=== PATIENT | male | born 1965 | race Hispanic/Latino ===

== ENCOUNTER 2016-11-15 00:35 | Observation (INO) | payer OTHER ==
[2016-11-15] VITALS (8 sets, daily range): BP systolic 124–152; BP diastolic 80–91; PULSE 59–78; RESP 14–20; O2SAT 96–98
[~2016-11-15] VITALS: Ht 165.1 cm; Wt 95.1 kg
--- NOTE | 2016-11-15 01:40 | ED.REPORT ---
HPI-Extremity Problem Upper Date of Service Nov 15, 2016 ED Provider: Marlo Frost MD Pt is a 51 year old male presenting to the ED complaining of redness and swelling to the base of his left thumb. The pt was bitten yesterday morning by his cat. Denies any fever, or any other symptoms at this time. He does not remember his last tetanus shot. Nursing Notes Stated Complaint: CAT BITE LEFT HAND Chief Complaint: Extremity Trauma Nursing Notes Reviewed: Yes Allergies: Coded Allergies: No Known Allergies (Verified Allergy, Unknown, 11/15/16) General Time Seen by MD: 01:39 Chief Complaint Hand Injury left Hx Obtained From: Patient Arrived By: Walk-in Onset Occurred: Yesterday Symptom Duration: Since onset Caused by: Animal bite (Cat) Location: : Hand left Quality: Painful Severity: Current: Mild Severity: Maximum: Moderate Associated with: Denies: Fever Immunizations: Unknown Recent Healthcare: No recent doctor visit, No recent hospitalization Similar Sx Previous: No Past Medical History Past Medical History healthy Past Surgical History denies Smoking History Unknown if Ever Smoker Ambulatory Status Independent Review of Systems Constitutional: Denies: Fever, Weakness - generalized Musculoskeletal: Reports: Extremity pain, Extremity swelling Complete sys rev & neg: except as marked. Respiratory: Denies: Shortness of breath Physical Exam Initial Vital Signs Vital Signs (First) Date Time Temp Pulse Resp B/P Pulse Ox O2 Delivery O2 Flow Rate FiO2 11/15/16 00:38 36.6 70 16 133/86 98 Room Air Initial VS: Reviewed General/Constitutional: Well-developed, Well-nourished Head / Eyes: Atraumatic, Normocephalic, PERRL ENT: Mucous membranes moist, Conjunctiva normal, No scleral icterus Respiratory: No respiratory distress Abdomen / GI: No distention Lower Extremities: Vascular intact, Neuro intact, No swelling, No tenderness Skin: Warm, Dry, No cyanosis Neurologic: Alert, Oriented, Nonfocal Psychiatric: Mood/affect normal, Behavior normal, Normal thought content Upper Extremity / MS: Full range of motion, No deformity, Neurologic intact, Vascular intact Puncture wounds base of left thumb on dorsum and radial aspect. Hand has some swelling in the first web space. Good active ROM. No streaking or axillary adenopathy. Interpretation & Diagnostics Lab Results Interpretation Result Diagram: 11/15/16 0202 11/15/16 0202 Test 11/15/16 02:02 White Blood Count 5.8th/mm3 (3.8-10.1) Red Blood Count 4.60mil/mm3 (4.40-5.80) Hemoglobin 14.2g/dL (13.8-17.2) Hematocrit 39.1% (41.0-50.0) Mean Corpuscular Volume 85.0fL (81-100) Mean Corpuscular Hemoglobin 30.9pg (27.0-35.0) Mean Corpuscular Hemoglobin Concent 36.3% (32.0-37.0) Red Cell Distribution Width 12.7% (12.3-15.4) Platelet Count 191bil/L (150-400) Neutrophils (%) (Auto) 52.3% (40-74) Lymphocytes (%) (Auto) 33.9% (14-46) Monocytes (%) (Auto) 10.7% (4-12) Eosinophils (%) (Auto) 2.8% (0-5) Basophils (%) (Auto) 0.3% (0-3) Sodium Level 142mEq/L (134-144) Potassium Level 3.9mEq/L (3.5-5.2) Chloride Level 104mEq/L (97-108) Carbon Dioxide Level 23mmol/L (18-29) Blood Urea Nitrogen 23mg/dL (6-24) Creatinine 0.76mg/dL (0.76-1.27) Estimat Glomerular Filtration Rate 115mL/min (>59) Glucose Level 107mg/dL (60-99) Calcium Level 9.1mg/dL (8.5-10.1) Total Bilirubin 0.6mg/dL (0.0-1.2) Aspartate Amino Transf (AST/SGOT) 26U/L (0-50) Alanine Aminotransferase (ALT/SGPT) 30U/L (0-44) Alkaline Phosphatase 55U/L (25-150) Total Protein 6.7g/dL (6.4-8.4) Albumin 4.1g/dL (3.4-5.0) Hold Shay Top Tube Received (Received) X-Ray Interpretation Xray Interpretation: Soft tissue swelling. No foreign body, no soft tissue gas, no fracture. X-Ray Ordered: Hand left Interpretation / Wet Read by: Wet read ED physician Re-Eval/Medical Decision Med Decision/Clinical Course 51-year-old male presenting with a 5 cellulitis to his left hand approximately 36 hours post bite. Tongue does not appear to have a foreign body or abscess and is not systemically ill at present. Blood cultures have been obtained, the extent of lymphangitic streaking with marked and he was started on IV Unasyn. We admitted to the hospitalist service, hopefully be all within two midnights. Re-Evaluation/Progress #1: Time of Eval: 01:48 Patient Status: Condition improved Re-Evaluation/Progress Note: Discussed plan for admission and IV antibiotics. Agrees with plan. Re-Evaluation/Progress #2: Time of Eval: 02:47 Patient Status: Condition improved Re-Evaluation/Progress Note: Marked the edges of the infection. Consultation : Referral / Consult Name: CatrinaMaryann Wahl Consulted With: Hospitalist Call Returned at: 03:15 Probation Agent: Will see patient, Agrees with plan, Accepts admit Counseled Regarding: Diagnosis, Lab results, Need for follow-up, When/why to return to ED Discharge & Departure Impression: Primary Impression: Cat bite involving extremity Additional Impression: Cellulitis of left hand Disposition: ADMITTED TO HOSPITAL Discharge Condition All VS Reviewed: Yes Condition: Improved Referrals: Ingrid Bullock MD (PCP) Suzanne Attestation Portions of this note were transcribed by Enedelia Seay. I, Dr. Frost personally performed the history, physical exam and medical decision-making; I reviewed and confirmed the accuracy of the information in the transcribed note. Signed by : Suzanne Curtis, 11/15/2016 at 0300. copies to: Ingrid Bullock MD, Donald L MD Nov 15, 2016 01:40 ENEDELIA SEAY Nov 15, 2016 01:47
[2016-11-15] MEDS ORDERED: TdaP Vaccine 0.5 mL Inj IM ONE (01:50)
[2016-11-15] MEDS ORDERED: Ondansetron 2 mg/mL 2 mL Inj IV PRN (01:50)
[2016-11-15] MEDS ORDERED: oxyCODONE-Acetamin 5-325 mg Tablet PO ONE (01:50)
[2016-11-15] MEDS ORDERED: Ampicillin-Sulbactam Inj 3,000 MG in 0.9% Sodium Chloride 100 ML IV ONE (01:50)
[2016-11-15 02:19] LABS: BASOPHILS % (AUTO) 0.3 % (0-3); EOSINOPHILS % (AUTO) 2.8 % (0-5); MONOCYTES % (AUTO) 10.7 % (4-12); Mean Corpuscular Hemoglobin 30.9 pg (27.0-35.0); NEUTROPHILS % (AUTO) 52.3 % (40-74); Platelet Count 191 bil/L (150-400)
--- NOTE | 2016-11-15 03:32 | NUR ---
Received report from Mary in ED.
[2016-11-15] MEDS ORDERED: Alum-Mag Hydrox-Simeth 30 mL Suspension PO PRN ×2 (03:40→04:20)
[2016-11-15] MEDS ORDERED: Ondansetron 2 mg/mL 2 mL Inj IVPUSH PRN ×2 (03:40→04:20)
--- NOTE | 2016-11-15 04:17 | NUR ---
ADMIT Pt arrived on floor at 0345 via wheelchair, transferred to bed by himself with steady gait. Pt in 4/10 pain, tolerable for now, no nausea reported. Admit complete. Med rec not complete--pt takes something for pain and inflammation in his back, unable to recall name, states he gets it from [place], takes it as little as possible. Pt denied any medical history. Awaiting orders.
[2016-11-15] MEDS ORDERED: Polyethylene Glycol (PEG) 17 Gm Powder PO PRN (04:20)
--- NOTE | 2016-11-15 05:47 | PCM.HPMED ---
Subjective Date of Service Nov 15, 2016 Primary Provider: Admitting Physician: Desmond Reid MD Primary Care Physician: Ingrid Bullock MD Attending Physician: Desmond Reid MD Admit Status: From the Emergency Department, Non-Telemetry Chief Complaint: "cat bite" History of Present Illness: Mr. Baljeet Cabello is a 51 year old man with history of low back pain who presented to the emergency department due to left thumb pain, redness, and swelling secondary to a cat bite that occurred on Wednesday morning, 11/13/2016. The redness and swelling has increased since the bite started. The pain has continued and occurs mainly when he moves his thumb. It goes up to a 6/10 with movement. The pain stays localized to the two puncture welsh from his cat's teeth. His cat goes outdoors and he does not think his cat has been vaccinated. He does not have fever, chills, palpitations, chest pain, nausea, or vomiting. He does not have pain in any other joints. In the emergency department, he received a dose of 3,000 mg IV ampicillin/ sulbactam, 5-325 mg Perocet, and 4 mg IV Zofran. An x-ray of his left hand was performed and showed soft tissue swelling. Review of Systems: A comprehensive review of systems was conducted with the patient and found to be negative except as above in the History of Present Illness. 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 Anicteric sclerae, moist conjunctivae, and no lid lag. Oropharynx free of erythema and cobble stoning with moist mucosa. Neck: Supple with full range of motion. No lymphadenopathy or thyromegaly. Cardiovascular: Regular rate and rhythm with no murmurs, rubs, or gallops appreciated Pulmonary: Clear to auscultation bilaterally with no crackles, wheezes, or rhonchi. Normal respiratory effort with no use of accessory muscles. Abdomen: Bowel tones present. Soft, nontender, nondistended. No hepatosplenomegaly or masses appreciated. Extremities: Left 1st digit erythema and edema at the metacarpophalangeal joint and carpometacarpal joint with mild warmth. Erythematous area is outlined with marker. Two puncture welsh on dorsal and palmar aspect of left 1st digit also outlined with marker. Pain with passive flexion and extension but active ROM intact of left 1st digit. No clubbing, cyanosis, or lymphadenopathy appreciated. Skin: Normal turgor and texture; no rash, ulcers, or subcutaneous nodules appreciated. Neurological: Cranial nerves grossly intact. Grossly normal muscle strength, tone, and bulk. Psychiatric: Normal mood and affect. Alert and oriented to person, place, and time. Lab and Diagnostics Result Diagram: 11/15/1620111/15/16201 X-Rays, CTs and MRIs Left hand Xray Interpretation: Soft tissue swelling. No foreign body, no soft tissue gas, no fracture. X-Ray Ordered: Hand left Interpretation / Wet Read by: Wet read ED physician Assessment & Plan Mr. Baljeet Cabello is a 51 year old man with history of low back pain who presented to the emergency department due to left thumb pain, redness, and swelling secondary to a cat bite that occurred on Wednesday morning. Left first digit cellulitis secondary to cat bite, acute, present on admission, active. - SIRS criteria not met - Continue IV Unasyn 3,000 mg IV every 6 hours - US of left thumb for further assessment for tenosynovitis given pain with passive ROM on exam - If US shows signs of tenosynovitis, consult hand therapeutic specialist - Continue to monitor Elevated glucose, acute, POA -no history of diabetes -hgbA1c pending Chronic back pain. - Acetaminophen as needed for pain Patient Status: Patient is admitted under observation status with expected length of stay less than 2 midnights due to risk of adverse event. CODE STATUS: FULL CODE Attending Statement The patient was seen and examined together with house staff on 11/15/2016 and I agree with the history, exam and plan as outlined in the note above. Shala Muñoz DO Nov 15, 2016 05:47 Maryann Fritz DO Nov 15, 2016 06:42
[2016-11-15] MEDS ORDERED: 0.9% Sodium Chloride 250 ML ONE (09:13)
[2016-11-15] MEDS: Ampicillin-Sulbactam Inj 3,000 MG in 0.9% Sodium Chloride 100 ML IV SCH ×3 (09:25→20:46)
--- NOTE | 2016-11-15 09:54 | NUR ---
Ultrasound Ultrasound of left thumb done this morning, per US," no abscess and no draining." Marin ibrahim hospitalist and awaiting response back. C/o pain 6/10 left thumb, PRN Tylenol given with effective results. Vital signs stable and afebrile. no sign and symptoms of infection noted to left thump. mild to moderate swelling with no redness to left hand and thumb. call light with in reach for safety. stable mood. continue to monitor vital signs and sign and symptoms of infection to left hand/thumb.
--- NOTE | 2016-11-15 12:03 | DRSVH ---
PROCEDURE: X-RAY LEFT HAND, MINIMUM THREE VIEWS ([id number]) INDICATIONS: cat bite with infection TECHNIQUE: 3 views of the hand(s) acquired. COMPARISON: None. FINDINGS: Bones: No fractures or dislocations. Carpal bones are normally aligned. No suspicious bony lesions . Soft tissues: No suspicious soft tissue calcifications. Soft tissue swelling over the base of the s econd finger. IMPRESSION: No fracture or foreign body. Dictated by: Veronique Lyons M.D. on 11/15/2016 at 12:00 Approved by: Veronique Lyons M.D. on 11/15/2016 at 12:01
--- NOTE | 2016-11-15 12:55 | DRSVH ---
PROCEDURE: US EXTREMITY SONOGRAM LIMITED ([id number]) INDICATIONS: left thumb pain & edema, ?tenosynovitis, cat bite TECHNIQUE: Real-time scanning was performed of the left thumb in the area of interest, with image do cumentation. COMPARISON: None. FINDINGS: There is soft tissue edema. No fluid collection. IMPRESSION: Soft tissue edema consistent with cellulitis. No fluid collections. Dictated by: Veronique Lyons M.D. on 11/15/2016 at 12:52 Approved by: Veronique Lyons M.D. on 11/15/2016 at 12:53
--- NOTE | 2016-11-15 13:33 | CONS ---
[address] [address] CONSULTATION REPORT PATIENT: DUNG ROMAN : 1965 MR#: [id number] ADMIT: 11/15/2016 JOB ID: [id number] DATE OF SERVICE: 11/15/2016 INFECTIOUS DISEASE CONSULTATION: I thank Dr. Reid for this timely consult. REASON FOR CONSULTATION: Cat bite, left thumb, with subsequent infection. 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 He was a bitten by one of his 13 cats on his left hand the morning of November 13. The cat bit him at the base of his left thumb. It started off relatively innocuous but over the 48 hours following the cat bite it got worse and worse, which eventually led to his to demand that he come to the emergency department and be admitted this morning. The patient states that aside from the increasing pain at the base of his left thumb he has had little else in the way of symptoms. He denies any fevers, chills, or sweats, does not have any significant headache or sore throat associated with this, and no pulmonary or GI symptoms. He was started on Unasyn in the ED and an ultrasound was done which failed to show an abscess. PAST MEDICAL HISTORY: Low back pain. SOCIAL HISTORY: The patient is a nonsmoker, who rarely drinks a Ya. 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 FAMILY HISTORY: Negative for tuberculosis in first- and second-degree relatives. REVIEW OF SYSTEMS: The patient has no significant headache. No visual complaints. No sore throat. No cough, shortness of breath, or chest pain. No nausea, vomiting, diarrhea, or dysuria. No swelling of any joint except his left thumb, which was bitten by the cat. The remainder of the review of systems is negative. PHYSICAL EXAMINATION: Reveals an afebrile gentleman, temperature 36.6, pulse 60, respiratory rate 15, blood pressure 124/81. He is saturating well on room air. He is in no acute distress. Examination of the head reveals no trauma. Eyes without conjunctivitis. Nose normal. Oral cavity: No thrush or hairy leukoplakia. Neck without adenopathy. Lungs are clear. Cardiac tones regular rate and rhythm, without murmur. Abdomen soft and nontender, without organomegaly. No suprapubic fullness. He does not have a Hernandez catheter. Aside from his left thumb, his joints are normal. There is no synovitis. He has excellent peripheral pulses. No evidence of skin rash anywhere. He does not have epitrochlear or axillary nodes on the left upper extremity. The left hand is notable for swelling around the base of the left thumb, which is moderately swollen from about the MCP joint up to the PIP. This is rather fusiform swelling. One can see a puncture carole, one on the underside of the thumb and two on the dorsal side of the thumb. There is no purulence which can be expressed. The patient has reasonably good range of motion of that thumb, though he does have pain with the range of motion. There is moderate pain to palpation of the involved erythematous portion of the thumb. The neurologic exam is completely normal. LABORATORIES: Include white blood count 5800 with normal diff. Creatinine 0.76. Micro studies include two blood cultures which are pending. IMAGING: Of the hand was done which is reported not to show evidence of abscess or osteo, though there is no formal reading available yet. IMPRESSION: This is a patient who sustained a serious cat bite to his left wrist about 48 hours ago with progressive swelling, warmth, and tenderness in the local area, but no systemic toxicity whatsoever. Cat bites are notorious for being deeper than are appreciated early on and can produce tenosynovitis with damage to the tendons or even osteomyelitis from a fairly innocuous appearing wound. That said, this appears to be a fairly straightforward case and hopefully the patient will dramatically improve without need for orthopedic involvement. RECOMMENDATIONS: 1. Unasyn IV 3 g q.6 h. at least overnight. 2. Will contemplate a transition to oral Augmentin in high dose tomorrow if the patient looks well. 3. This case discussed at the bedside with Dr. Reid, the referring hospital. Thank you very much.
--- NOTE | 2016-11-15 18:21 | NUR ---
Mentation Patient is alert and oriented X3. able to make needs known. PRN Tylenol given for left hand/thumb pain this AM. Denies pain or discomfort at this time. Able to tolerate PO fluids and meals with out any difficulty. Dr. Bates and Dr. jeong at bed side this AM. Continue to monitor
--- NOTE | 2016-11-15 22:08 | PCM.PNMED ---
Subjective Date of Service Nov 15, 2016 Subjective Patient is feeling a little bit better than he did when he came into the emergency room. He has increased range of motion of the left thumb. He has no fever, no chills, no other constitutional symptoms. Exam Vital Signs Vital Sign - Last Date Time Temp Pulse Resp B/P Pulse Ox O2 Delivery O2 Flow Rate FiO2 11/15/16 17:14 37.0 59 14 137/83 98 Room Air Exam General: Patient is in no apparent distress lying supine in bed with head elevated a properly 45. HEENT: Head is atraumatic and normocephalic. Eyes: Pupils are equally round and reactive to light and accommodation. Extraocular muscles are intact. Sclera are white, anicteric. Subconjunctival mucosa is pink. Ears and nose are unremarkable. Oropharynx: There is no mucosal lesions, there is no thrush, there is no pharyngitis. Neck: Is supple, there are no nodes, or masses or tenderness. Chest: Is clear to auscultation and percussion. There are no rales, rhonchi, wheezes or rubs. Heart: Rate, rhythm is regular. There is no murmur, rub or gallop. Abdomen: Good bowel sounds are present. Abdomen is soft, nontender, no organomegaly or masses were appreciated. Extremities: There are 3 bite wounds of the left thumb from patient's reported cat bite. There is cellulitis of the thumb which appears to have improved based upon the demarcations made at the time of admission. There is increased range of motion since admission. There is no fluctuance or crepitance. There is no drainage. Neurologic: There are no focal neurological deficits. Cranial nerves II through XII are intact. There are no sensory or motor deficits. Psychiatric: Patients mood is calm and he shows no sign of agitation. Genital: Deferred Rectal: Deferred Lab and Diagnostics Result Diagram: 11/15/1620111/15/16201 X-Rays, CTs and MRIs Left hand Xray Interpretation: Soft tissue swelling. No foreign body, no soft tissue gas, no fracture. X-Ray Ordered: Hand left Interpretation / Wet Read by: Wet read ED physician Assessment & Plan Mr. Baljeet Cabello is a 51 year old man with history of low back pain who presented to the emergency department due to left thumb pain, redness, and swelling secondary to a cat bite that occurred on Wednesday morning. Left first digit cellulitis secondary to cat bite, acute, present on admission, active. - SIRS criteria not met - Continue IV Unasyn 3,000 mg IV every 6 hours - US of left thumb for further assessment for tenosynovitis given pain with passive ROM on exam was performed. There was no evidence of any abscess or tenosynovitis seen. - If US shows signs of tenosynovitis, consult hand shipping specialist - Continue to monitor - I have consulted Dr. Bates of infectious disease and appreciate his time and expertise. His impression is as follows: "This is a patient who sustained a serious cat bite to his left wrist about 48 hours ago with progressive swelling, warmth, and tenderness in the local area, but no systemic toxicity whatsoever. Cat bites are notorious for being deeper than are appreciated early on and can produce tenosynovitis with damage to the tendons or even osteomyelitis from a fairly innocuous appearing wound. That said, this appears to be a fairly straightforward case and hopefully the patient will dramatically improve without need for orthopedic involvement." Elevated glucose, acute, present on admission - Likely due to concurrent infection - The patient has no history of diabetes - The hgbA1c is still pending Chronic back pain. - Acetaminophen as needed for pain Patient Status: Patient is admitted under observation status with expected length of stay less than 2 midnights due to risk of adverse event. CODE STATUS: FULL CODE Pain Evaluation: Adequate Pain Control GI Prophylaxis: Not indicated Resuscitation Status: CPR: Attempt Resuscitation Desmond Reid MD Nov 15, 2016 22:08
[2016-11-16 02:23] VITALS: BP 157/87; PULSE 60; RESP 16; O2SAT 97
[2016-11-16] MEDS: Ampicillin-Sulbactam Inj 3,000 MG in 0.9% Sodium Chloride 100 ML IV SCH ×4 (02:40→20:21)
--- NOTE | 2016-11-16 03:56 | NUR ---
Pain/Activity pt reported 6/10 left thumb pain x1. Administered Tylenol. 1hr after administration, pt resting quietly in bed with eyes closed, and pt didn't voice pain afterward. pt report pain increased with movement. There is still little swelling and redness, but pt state " it looks better now." pt ambulated independently with supervision 5 rounds of the floor hallway. gait steady. VS with elevated BP 150s/80s, but asymptomatic. pt afebrile. will continue to monitor and provide care.
[2016-11-16 05:52] VITALS: BP 123/83; PULSE 68; RESP 16; O2SAT 96
[2016-11-16 08:00] VITALS: BP 137/95; PULSE 64; RESP 18; O2SAT 95
--- NOTE | 2016-11-16 09:41 | PROG NOTE ---
[address] [address] PROGRESS NOTE PATIENT: DUNG ROMAN : 1965 MR#: [id number] ADMIT: 11/15/2016 JOB ID: [id number] DATE: 11/16/2016 REASON FOR FOLLOWUP: Left thumb infection secondary to cat bite. INTERVAL HISTORY: Overnight, the patient's left thumb has dramatically improved. He now has essentially full range of motion and just very minimal pain with aggressive palpation of the thumb, but nothing else remarkable. He has noticed no spread to other portions of his hand, nor has he had any pain around his epitrochlear or axillary nodes on the left side. No fevers. No chills. No pulmonary or GI symptoms. PHYSICAL EXAMINATION: Reveals an afebrile gentleman, he has been afebrile since admission. Temp 36.6, pulse 68, respiratory rate 16, blood pressure 123/63, saturating 96% on room air. He is in no acute distress. Lungs clear. Abdomen benign. Mental status is normal. The proximal left thumb now is almost nontender, except at the very deepest of a most aggressive palpation. There is no longer any erythema or notable restricted range of motion. LABORATORIES: Include yesterday's white count 5800. LFTs were normal yesterday. Blood cultures are negative. IMAGING: Included the ultrasound that showed no abscess in the thumb. IMPRESSION: This patient is doing well with respect to his cat bite. He has been receiving Unasyn overnight but I think at this point, he is ready to transition to oral therapy and be discharged. RECOMMENDATIONS: 1. I would continue Unasyn and discharge, presumably later today. 2. Outpatient, I would give 875 of Augmentin p.o. b.i.d., plus 1 g of amoxicillin p.o. b.i.d. for one week. 3. ID will sign off on this case at this time. Thank you very much, Dr. Reid, for this timely consult.
--- NOTE | 2016-11-16 11:32 | NUR ---
Social Work-screening/ readiness for discharge: Data:EMR reviewed. Pt is 51 y/o male who was admitted on 11/15/16 for cat bite per H&P. Pt's insurance is and PCP is Ingrid Bullock MD. SW met with pt to discuss discharge planning, SW role explained. SW met with pt and Christina at bedside to discuss discharge planning, SW role explained. Pt resides at home with his where he remains independent with ADLS. Pt has been up independent in his room. ID has see pt and states pt can return home on oral abx. SW discussed DPOA/ advanced directive, pt has not completed this, SW provided them with the forms. Pt's to provide transport home at discharge. No anticipated discharge needs. SW will continue to follow if needs arise. Assessment:Pt who is independent at baseline. Plan:Pt to discharge home when medically stable via POV. Pt to discharge on oral abx. No anticipated discharge needs. SW will continue to follow if needs arise. CAYLA Teixeira
--- NOTE | 2016-11-16 13:24 | NUR ---
Med rec: Per pt, he only takes hydrocodone for his back, does not remember the dosage or if the medication has acetaminophen in it. He reports that [place] gets it from [place] of the [place].
--- NOTE | 2016-11-16 16:28 | NUR ---
Mobility/left thumb Indep in room tolerating food and fluids Left thumb improving, redness way below marked sites. Pain only at puncture site, pt prefers not to take anything for pain. plan - probable DC tomorrow.
[2016-11-16 18:40] VITALS: BP 138/85; PULSE 69; RESP 18; O2SAT 95
[2016-11-16 22:03] VITALS: BP 150/83; PULSE 68; RESP 18; O2SAT 96
--- NOTE | 2016-11-17 00:49 | PCM.PNMED ---
Subjective Date of Service Nov 16, 2016 Subjective Patient is feeling better and has no fever, chills, or diaphoresis. However, he still does not have full range of motion of his left thumb. He still has some erythema of the thumb as well. Exam Vital Signs Vital Sign - Last Date Time Temp Pulse Resp B/P Pulse Ox O2 Delivery O2 Flow Rate FiO2 11/16/16 22:03 36.8 68 18 150/83 96 Room Air Intake and Output 11/16/16 11/16/16 11/17/16 Cumulative From/Thru 15:00 23:00 07:00 11/15/16 00:38 - 11/16/16 18:21 Intake Total 1470 ml 3671 ml Output Total 4 ml 4 ml Balance 1466 ml 3667 ml Intake Oral 1400 ml 3209 ml IV Total 70 ml 462 ml Output Urine Total 4 ml 4 ml # Voids 7 # Bowel Movements 0 0 Exam General: Patient is in no apparent distress lying supine in bed with head elevated a properly 45. HEENT: Head is atraumatic and normocephalic. Eyes: Pupils are equally round and reactive to light and accommodation. Extraocular muscles are intact. Sclera are white, anicteric. Subconjunctival mucosa is pink. Ears and nose are unremarkable. Oropharynx: There is no mucosal lesions, there is no thrush, there is no pharyngitis. Neck: Is supple, there are no nodes, or masses or tenderness. Chest: Is clear to auscultation and percussion. There are no rales, rhonchi, wheezes or rubs. Heart: Rate, rhythm is regular. There is no murmur, rub or gallop. Abdomen: Good bowel sounds are present. Abdomen is soft, nontender, no organomegaly or masses were appreciated. Extremities: There are 3 bite wounds of the left thumb from patient's reported cat bite. There is cellulitis of the thumb which appears to have improved based upon the demarcations made at the time of admission. There is increased range of motion since admission. There is no fluctuance or crepitance. There is no drainage. Neurologic: There are no focal neurological deficits. Cranial nerves II through XII are intact. There are no sensory or motor deficits. Psychiatric: Patients mood is calm and he shows no sign of agitation. Genital: Deferred Rectal: Deferred Lab and Diagnostics Result Diagram: 11/15/1620111/15/16201 Microbiology Blood cultures remain negative at 24 hours. X-Rays, CTs and MRIs Left hand Xray Interpretation: Soft tissue swelling. No foreign body, no soft tissue gas, no fracture. X-Ray Ordered: Hand left Interpretation / Wet Read by: Wet read ED physician Assessment & Plan Mr. Baljeet Cabello is a 51 year old man with history of low back pain who presented to the emergency department due to left thumb pain, redness, and swelling secondary to a cat bite that occurred on Wednesday morning. Left first digit cellulitis secondary to cat bite, acute, present on admission, active and slightly improved. - SIRS criteria not met - Continue IV Unasyn 3,000 mg IV every 6 hours - US of left thumb for further assessment for tenosynovitis given pain with passive ROM on exam was performed. There was no evidence of any abscess or tenosynovitis seen. - If US shows signs of tenosynovitis, consult hand disability benefits specialist - Continue to monitor - I have consulted Dr. Bates of infectious disease and appreciate his time and expertise. His impression is as follows: "This is a patient who sustained a serious cat bite to his left wrist about 48 hours ago with progressive swelling, warmth, and tenderness in the local area, but no systemic toxicity whatsoever. Cat bites are notorious for being deeper than are appreciated early on and can produce tenosynovitis with damage to the tendons or even osteomyelitis from a fairly innocuous appearing wound. That said, this appears to be a fairly straightforward case and hopefully the patient will dramatically improve without need for orthopedic involvement." Elevated glucose, acute, present on admission - Likely due to concurrent infection - The patient has no history of diabetes - The hgbA1c is still pending Chronic back pain. - Acetaminophen as needed for pain Disposition: Will continue IV antibiotics for another 24 hours. If patient continues to improve we will likely discharge home on oral antibiotics. Discuss with Dr. Bates today. CODE STATUS: FULL CODE Pain Evaluation: Adequate Pain Control GI Prophylaxis: Not indicated Resuscitation Status: CPR: Attempt Resuscitation Desmond Reid MD Nov 17, 2016 00:49
[2016-11-17] MEDS: Ampicillin-Sulbactam Inj 3,000 MG in 0.9% Sodium Chloride 100 ML IV SCH ×2 (02:21→08:54)
[2016-11-17 02:29] VITALS: BP 121/80; PULSE 60; RESP 16; O2SAT 94
--- NOTE | 2016-11-17 05:31 | NUR ---
Activity/Left Thumb pt independent in room and ambulated 3 rounds in the hallway with supervision. left thumb swelling is improving, didn't note any redness during this night. 0-1/10 pain localized only to bite site only. VS WNL, afebrile. will continue to monitor and provide care.
[2016-11-17 06:23] VITALS: BP 117/76; PULSE 61; RESP 16; O2SAT 98
[2016-11-17 07:08] LABS: BASOPHILS % (AUTO) 0.4 % (0-3); EOSINOPHILS % (AUTO) 3.5 % (0-5); MONOCYTES % (AUTO) 8.7 % (4-12); Mean Corpuscular Hemoglobin 31.5 pg (27.0-35.0); Mean Corpuscular Volume 82.7 fL (81-100); NEUTROPHILS % (AUTO) 59.6 % (40-74); Platelet Count 186 bil/L (150-400)
[2016-11-17 08:04] LABS: ERYTHROCYTE SEDIMENTATION RATE 6 mm/hr (0-15)
[2016-11-17 08:26] LABS: Magnesium 2.1 mg/dL (1.6-2.6)
[2016-11-17 08:30] VITALS: BP 151/87; PULSE 57; RESP 20; O2SAT 96
--- NOTE | 2016-11-17 09:26 | PCM.DIMED ---
Discharge Instructions Date of Service Nov 17, 2016 Dates of Hospitalization Nov 15, 2016 at 03:14 Discharge Diagnosis Discharge Diagnosis Cellulitis of the left thumb and hand after a cat bite. Diet Discharge Diet: No restrictions Activity Discharge Activity: No restrictions Call your provider Call your provider for: Fever or Chills, Shortness of breath, Bleeding, Chest pain, Vomitting, Excessive diarrhea, Weakness (unilateral), Other (diarrhea) Patient Instructions Follow-up Provider: Ingrid Bullock MD Follow-up with PCP in: 1 week Provider: Tolu Bates MD Follow-up in: 1 week Desmond Reid MD Nov 17, 2016 09:26
[2016-11-17] MEDS ORDERED: AMOX500T2 PO (09:30)
[2016-11-17] MEDS ORDERED: AMOX-366 PO (09:30)
--- NOTE | 2016-11-17 10:25 | NUR ---
Discharge Reviewed DC instructions with patient and family. Script e-fax to [facility]. Answered all questions. Pt ambulated out to private auto to home with family. All belongings taken.
--- NOTE | 2016-11-17 11:16 | NUR ---
Social Work: Discharge D: EMR reviewed. Per MD, pt is medically stable to discharge today. Pt's to provide transport home at discharge. No anticipated discharge needs. SW will continue to follow if needs arise. A: Pt who is independent at baseline. P:Pt to discharge home when today via POV. Pt to discharge on oral ABX. No anticipated discharge needs. SW will continue to follow if needs arise. CAYLA Zepeda
--- NOTE | 2016-11-17 23:31 | PCM.DC.MED ---
Discharge Summary Date of Service Nov 17, 2016 Dates of Hospitalization Date of Hospital Admission Nov 15, 2016 at 03:14 Date of Discharge: Nov 17, 2016 Providers: Admitting Physician: Desmond Reid MD Primary Care Physician: Ingrid Bullock MD Attending Physician: Desmond Reid MD Diagnosis at Time of Discharge Diagnosis at Time of Discharge Cellulitis of the left thumb and hand after a cat bite. Procedures XRay, CTs & MRIs Left hand Xray Interpretation: Soft tissue swelling. No foreign body, no soft tissue gas, no fracture. X-Ray Ordered: Hand left Interpretation / Wet Read by: Wet read ED physician Brief History Mr. Baljeet Cabello is a 51 year old man with history of low back pain who presented to the emergency department due to left thumb pain, redness, and swelling secondary to a cat bite that occurred on Wednesday morning, 11/13/2016. The redness and swelling has increased since the bite started. The pain has continued and occurs mainly when he moves his thumb. It goes up to a 6/10 with movement. The pain stays localized to the two puncture welsh from his cat's teeth. His cat goes outdoors and he does not think his cat has been vaccinated. He does not have fever, chills, palpitations, chest pain, nausea, or vomiting. He does not have pain in any other joints. In the emergency department, he received a dose of 3,000 mg IV ampicillin/ sulbactam, 5-325 mg Perocet, and 4 mg IV Zofran. An x-ray of his left hand was performed and showed soft tissue swelling. Patient was admitted to the hospitalist service for further evaluation and treatment. Hospital Course Mr. Baljeet Cabello is a 51 year old man with history of low back pain who presented to the emergency department due to left thumb pain, redness, and swelling secondary to a cat bite that occurred on Wednesday. The patient was admitted to the hospitalist service for further evaluation and treatment. Left first digit cellulitis secondary to cat bite, acute, present on admission, active and slightly improved. - SIRS criteria not met - Patient was treated with IV Unasyn 3,000 mg IV every 6 hours - US of left thumb for further assessment for tenosynovitis given pain with passive ROM on exam was performed. There was no evidence of any abscess or tenosynovitis seen. - Continue to monitor - I consulted Dr. Bates of infectious disease and appreciate his time and expertise. His impression is as follows: "This is a patient who sustained a serious cat bite to his left wrist about 48 hours ago with progressive swelling, warmth, and tenderness in the local area, but no systemic toxicity whatsoever. Cat bites are notorious for being deeper than are appreciated early on and can produce tenosynovitis with damage to the tendons or even osteomyelitis from a fairly innocuous appearing wound. That said, this appears to be a fairly straightforward case and hopefully the patient will dramatically improve without need for orthopedic involvement." Dr. Bates went further to recommend the following: " Outpatient, I would give 875 of Augmentin p.o. b.i.d., plus 1 g of amoxicillin p.o. b.i.d. for one week." Elevated glucose, acute, present on admission - Likely due to concurrent infection - The patient has no history of diabetes - The hgbA1c is still pending Chronic back pain. - Acetaminophen as needed for pain Disposition: Patient will be discharged home today. Preventive medical regimen right as recommended by Dr. Bates. Patient agrees with this plan. CODE STATUS: FULL CODE Exam Vital Signs (Last) Date Time Temp Pulse Resp B/P Pulse Ox O2 Delivery O2 Flow Rate FiO2 11/17/16 08:30 36.7 57 20 151/87 96 Room Air Exam General: Patient is in no apparent distress lying supine in bed with head elevated a properly 45. HEENT: Head is atraumatic and normocephalic. Eyes: Pupils are equally round and reactive to light and accommodation. Extraocular muscles are intact. Sclera are white, anicteric. Subconjunctival mucosa is pink. Ears and nose are unremarkable. Oropharynx: There is no mucosal lesions, there is no thrush, there is no pharyngitis. Neck: Is supple, there are no nodes, or masses or tenderness. Chest: Is clear to auscultation and percussion. There are no rales, rhonchi, wheezes or rubs. Heart: Rate, rhythm is regular. There is no murmur, rub or gallop. Abdomen: Good bowel sounds are present. Abdomen is soft, nontender, no organomegaly or masses were appreciated. Extremities: There are 3 bite wounds of the left thumb from patient's reported cat bite. There is cellulitis of the thumb which appears to have almost completely resolved today.. There is normal range of motion of the left thumb. There is no fluctuance or crepitance. There is no drainage. Neurologic: There are no focal neurological deficits. Cranial nerves II through XII are intact. There are no sensory or motor deficits. Psychiatric: Patients mood is calm and he shows no sign of agitation. Genital: Deferred Rectal: Deferred Test 11/15/16 02:02 11/17/16 06:45 Hemoglobin A1c 5.3% (4.8-5.6) Hold Shay Top Tube Received (Received) White Blood Count 4.9th/mm3 (3.8-10.1) Red Blood Count 4.86mil/mm3 (4.40-5.80) Hemoglobin 15.3g/dL (13.8-17.2) Hematocrit 40.2% (41.0-50.0) Mean Corpuscular Volume 82.7fL (81-100) Mean Corpuscular Hemoglobin 31.5pg (27.0-35.0) Mean Corpuscular Hemoglobin Concent 38.1% (32.0-37.0) Red Cell Distribution Width 12.7% (12.3-15.4) Platelet Count 186bil/L (150-400) Neutrophils (%) (Auto) 59.6% (40-74) Lymphocytes (%) (Auto) 27.6% (14-46) Monocytes (%) (Auto) 8.7% (4-12) Eosinophils (%) (Auto) 3.5% (0-5) Basophils (%) (Auto) 0.4% (0-3) Erythrocyte Sedimentation Rate 6mm/hr (0-15) Sodium Level 140mEq/L (134-144) Potassium Level 4.0mEq/L (3.5-5.2) Chloride Level 102mEq/L (97-108) Carbon Dioxide Level 23mmol/L (18-29) Blood Urea Nitrogen 15mg/dL (6-24) Creatinine 0.76mg/dL (0.76-1.27) Estimat Glomerular Filtration Rate 115mL/min (>59) Glucose Level 101mg/dL (60-99) Calcium Level 9.1mg/dL (8.5-10.1) Magnesium Level 2.1mg/dL (1.6-2.6) Total Bilirubin 0.7mg/dL (0.0-1.2) Aspartate Amino Transf (AST/SGOT) 18U/L (0-50) Alanine Aminotransferase (ALT/SGPT) 26U/L (0-44) Alkaline Phosphatase 48U/L (25-150) C-Reactive Protein 0.2mg/dL (0.0-0.5) Total Protein 6.5g/dL (6.4-8.4) Albumin 3.9g/dL (3.4-5.0) Procalcitonin 0.05ng/mL (0.00-0.08) Microbiology Results Blood cultures remain negative at 24 hours. Discharge Medications Discharge Medications Amoxicillin (Amoxicillin) 500 Mg Tablet 1,000 MG PO BID Prescribed by: HAILEY REID MD Amoxicillin/Clav K 875-125 mg (Augmentin 875-125 mg) 1 Each Tablet 1 TABLET PO BID Prescribed by: HAILEY REID MD Followup Plan Disposition: The patient is being discharged home on oral antibiotics. Discharge Diet: No restrictions Discharge Activity: No restrictions Follow-up Provider: Ingrid Bullock MD Follow-up with PCP in: 1 week Provider: Tolu Bates MD Follow-up in: 1 week Time spent Time spent on discharging this patient was greater than 35 minutes, over half of which was involved in counseling and coordination of care. Desmond Reid MD Nov 17, 2016 23:31
== END 2016-11-17 10:25 | disposition home or self-care (01) ==
LOC: SED 00:35 → MOC 03:14
PROVIDERS: ADMIT Internal Medicine Infectious Disease; ATTEND Internal Medicine Infectious Disease
DX: L03.012 Cellulitis of left finger (principal); L03.114 Cellulitis of left upper limb; W55.01XA Bitten by cat, initial encounter; Y93.9 Activity, unspecified; Y92.9 Unspecified place or not applicable; R73.09 Other abnormal glucose; M54.9 Dorsalgia, unspecified; Z23 Encounter for immunization
CPT/HCPCS: 36415; 73130; 76882; 80053; 83036; 83735; 84145; 85025; 85651; 86140; 87040; 90471; 90715; 96365; 96366; 96375; 96376; 99285; G0378; J0295; J2405; J7050